=== PATIENT | female | born 1985 | race Caucasian/White ===

== ENCOUNTER 2022-03-18 02:19 | Emergency (ER) | payer MEDICAID ==
[~2022-03-18] VITALS: Ht 160 cm; Wt 98.6 kg
[2022-03-18 02:26] VITALS: BP 121/79
[2022-03-18] MEDS ORDERED: CLOT15CR27 TP (02:48)
== END 2022-03-18 03:05 | disposition home or self-care (01) ==
LOC: ER 02:19
DX: B35.3 Tinea pedis (principal); Z59.02 Unsheltered homelessness
CPT/HCPCS: 99282

== ENCOUNTER 2022-05-01 12:03 | Emergency (ER) | payer MEDICAID ==
[~2022-05-01] VITALS: Ht 160 cm; Wt 95.0 kg
[~2022-05-01 12:03] MED LIST: CLOT15CR27 TP
[2022-05-01 12:49] VITALS: BP 116/63
[2022-05-02] MEDS ORDERED: TOPUD MT (06:07)
[2022-05-02] MEDS ORDERED: SULF1TAB48 MT (06:10)
[2022-05-02] MEDS ORDERED: CEPH500C2 MT (06:10)
== END 2022-05-01 18:54 | disposition left against medical advice (07) ==
LOC: ER 12:03
DX: Z53.21 Procedure and treatment not carried out due to patient leaving prior to being seen by health care provider (principal)

== ENCOUNTER 2022-05-01 23:52 | Emergency (ER) | payer MEDICAID ==
[~2022-05-01] VITALS: Ht 160 cm; Wt 96.3 kg
[2022-05-02 00:20] VITALS: BP 123/79
[2022-05-02] MEDS ORDERED: BACITRACIN ZINC OINT UDPKT TOP ONE (02:15)
[2022-05-02] MEDS ORDERED: ACETAMINOPHEN 325MG TABLET PO ONE (02:15)
[2022-05-02] MEDS ORDERED: LIDOCAINE HCL/PF 1% 10 MG/ML 5ML VIAL INFIL ONE (02:15)
[2022-05-02] MEDS ORDERED: BACITRACIN ZINC OINT UDPKT TOP NR (05:30)
[2022-05-02] MEDS: ACETAMINOPHEN 325MG TABLET PO NR ×2 (05:30→05:34)
[2022-05-02] MEDS ORDERED: LIDOCAINE HCL/PF 1% 10 MG/ML 5ML VIAL INFIL NR (05:30)
[2022-05-02 05:57] LABS: CLARITY URINE CLOUDY (CLEAR); COLOR URINE YELLOW (YELLOW); KETONES URINE NEGATIVE (NEGATIVE); LEUKOCYTE ESTERASE URINE 3+ (NEGATIVE); NITRITE URINE NEGATIVE (NEGATIVE); OCCULT BLOOD URINE 1+ (NEGATIVE); PH URINE 6.5 (4.5-8.0); PROTEIN URINE TRACE (NEGATIVE); SPECIFIC GRAVITY URINE 1.019 (1.005-1.030)
[2022-05-02] MEDS ORDERED: TOPUD MT (06:07)
[2022-05-02] MEDS ORDERED: CEPH500C2 MT (06:10)
[2022-05-02] MEDS ORDERED: SULF1TAB48 MT (06:10)
== END 2022-05-02 06:32 | disposition home or self-care (01) ==
LOC: ER 23:52
DX: L02.415 Cutaneous abscess of right lower limb (principal); L03.115 Cellulitis of right lower limb; N39.0 Urinary tract infection, site not specified
CPT/HCPCS: 81003; 81025; 87086; 99283; J3490; Z7610